=== PATIENT | female | born 1995 | race Caucasian/White ===

== ENCOUNTER 2017-10-14 12:10 | Emergency (ER) | payer OTHER ==
[2017-10-14 12:47] LABS: Bilirubin Small (Negative); Blood, Urine Negative (Negative); Glucose, Urine (Dipstick) Negative (Negative); Leukocyte Trace (Negative); Nitrite Negative (Negative); Protein, Urine (Dipstick) Negative (Neg-Trace); Specific Gravity, Urine 1.025 (1.005-1.030); Urobilinogen 0.2 mg/dL (0.2-1.0); pH, Urine 6.5 (5.0-9.0)
[2017-10-14 12:49] LABS: Clarity Clear (Clear); Pregnancy Test - Urine (BHCG) Negative (Negative); Pregu Control Background? CLEAR/WHITE (CLR/WHITE); Pregu Control Bar Appear? YES (CONTROL BAR); Specific Gravity 1.025 (1.002-1.036)
[2017-10-14 12:57] LABS: Bacteria/HPF 1+ HPF (None Seen); RBC/HPF 0-3 HPF (0-3)
[2017-10-14 12:58] LABS: Hyaline Casts/LPF 0-3 HYALINE CAST LPF (0-3 Hyaline)
[2017-10-14 12:58] LABS: #Basophils 0.1 thou/uL (0.0-0.2); #Eosinphils 0.1 thou/uL (0.0-0.7); #Lymphocytes 1.7 thou/uL (1.20-3.40); #Monocytes 0.4 thou/uL (0.11-0.59); %Basophils 1.2 % (0.0-1.0); %Eosinophils 1.8 % (0.0-10.0); %Lymphocytes 32.2 % (21.0-51.0); %Neutrophils 57.8 % (42.0-75.0); Hemoglobin 14.3 g/dL (12.0-16.0); Mean Corpuscular HGB CONC 33.2 g/dL (32.0-36.0); Mean Corpuscular Hemoglobin 33.1 pg (27.0-31.0); Mean Corpuscular Volume 99.7 fl (81.0-99.0); Mean Platelet Volume 7.4 fL (7.4-10.4); Platelet Count 242 thou/uL (130-400); RBC Distribution Width 10.9 % (11.5-14.5); Red Blood Cell (RBC) Count 4.32 mill/uL (4.20-5.40); White Blood Cell (WBC) Count 5.2 thou/uL (4.8-10.8)
[2017-10-14 13:21] LABS: ALT (SGPT) Less than 7 U/L (8-55); AST (SGOT) 12 U/L (5-34); Albumin 4.6 g/dL (3.5-5.0); Alkaline Phosphatase 41 U/L (40-150); Anion Gap 12 mmol/L (10-20); BUN (Urea Nitrogen) 8 mg/dL (7.0-18.7); Bilirubin, Total 0.7 mg/dL (0.2-1.2); Calc. Creatinine Clearance 0 mL/min (70-130); Calcium 9.5 mg/dL (7.8-10.44); Carbon Dioxide 25 mmol/L (22-29); Chloride 105 mmol/L (98-107); Estimated GFR-MDRD 86; Globulin 2.7 g/dL (2.4-3.5); Glucose 88 mg/dL (70-105); Lipase 14 U/L (8-78); Potassium 4.2 mmol/L (3.5-5.1); Protein, Total 7.3 g/dL (6.0-8.3); Sodium 138 mmol/L (136-145)
--- NOTE | 2017-10-14 14:01 | ULT ---
RIGHT UPPER QUADRANT ULTRASOUND: Date: 10/14/17 HISTORY: Right upper quadrant pain. TECHNIQUE: Multiple longitudinal and transverse images of the right upper quadrant of the abdomen obtained using multihertz curvilinear transducer. Real-time, color flow, and spectral waveform Doppler analysis use d to evaluate the right upper quadrant. FINDINGS: The liver is unremarkable. No evidence of hepatic parenchymal masses or lesions seen. Normal hepatope wilson flow is seen. The common bile duct is of normal size, measuring 2.3 mm. The gallbladder is unremarkable. The right kidney is unremarkable. [id number] measurement measuring 10.5 cm. No significant evidence of ascites is seen. The pancreas is suboptimally visualized to comm ent upon. The gallbladder demonstrates no evidence of gallstones or wall thickening. IMPRESSION: Normal right upper quadrant ultrasound. POS: [facility]
[2017-10-14] MEDS ORDERED: ISOVUE-370 76%-LOCM 1 ML ONE (14:37)
[2017-10-14] MEDS ORDERED: Ondansetron HCl/PF 4 MG/2 ML Vial ONE (18:45)
--- NOTE | 2017-10-14 18:53 | CT ---
ABDOMEN CT WITH CONTRAST PELVIC CT WITH CONTRAST: Date: 10/14/17 HISTORY: Abdominal pain. Pain exacerbated after eating. One episode of emesis. COMPARISON: None. TECHNIQUE: Abdomen and pelvic CT are performed with IV contrast. Enteric contrast was not administered. Coronal reformatted images are submitted for interpretation. FINDINGS: ABDOMEN CT: Lung bases are clear. Heart size is normal. No pericardial effusion. Descending thoracic aorta and ab dominal aorta have a normal caliber. No periaortic fat stranding. No gastrohepatic, retrocrural, or periportal lymphadenopathy. Intra and extrahepatic portal vein is patent. Liver, spleen, pancreas, and adrenal glands have appropriate enhancement. Gallbladder is mildly contracted. No obvious CT evidence of cholecystitis. There are a few scattered nonspecific mesenteric lymph nodes. No mesenteric mass, lymphadenopathy, fr ee air, or free fluid. Symmetric enhancement of the kidneys. Bilaterally, no obstructive uropathy. Limited evaluation of the alimentary canal due to lack of oral contrast. Grossly unremarkable gastric mucosa, duodenum, and multiple normal caliber small bowel loops. Normal ileocecal junction. Appendix is not appreciated. No inflammation at the cecal apex. Scattered fecal material in nondistended, non dilated colon. PELVIC CT: Uterus and adnexal structures are unremarkable. Urinary bladder is unremarkable. No pelvic mass, lymp hadenopathy, or free air. Free fluid in the pelvis is presumed to be physiologic. No lytic or blastic lesions in the osseous structures. IMPRESSION: 1. No acute abnormality in the abdomen or pelvis. 2. Nonvisualization of the appendix. No obvious inflammation at the cecal apex. POS: [facility]
[2017-10-14] MEDS ORDERED: Ketorolac Tromethamine 30 MG/ML VIAL ONE (19:27)
== END 2017-10-14 22:06 | disposition home or self-care (01) ==
LOC: ERS 12:10
DX: K82.8 Other specified diseases of gallbladder (principal); Z79.899 Other long term (current) drug therapy
CPT/HCPCS: 36415; 74177; 76705; 80053; 81003; 81015; 81025; 83690; 85025; 87086; 96361; 96374; 96375; J1885; J2405

== ENCOUNTER 2017-10-15 11:39 | Outpatient (CLI) | payer OTHER ==
--- NOTE | 2017-10-15 15:09 | NM ---
HEPATOBILIARY SCAN: Date: 10/15/17 COMPARISON: None. HISTORY: Right upper quadrant abdominal pain. TECHNIQUE: A hepatobiliary scan was performed after administration of 4.9 mCi technetium-99m mebrofenin. FINDINGS: Prompt uptake of the radiopharmaceutical by the liver is seen. Biliary activity and gallbladder activ ity is seen immediately. Bowel activity is seen within 15 minutes. Gallbladder ejection fraction estimated at 57% after administration of CCK. IMPRESSION: Normal hepatobiliary scan. POS: [facility]
== END 2017-10-15 11:40 | disposition home or self-care (01) ==
LOC: NM 11:39
PROVIDERS: ATTEND Surgery
DX: R10.11 Right upper quadrant pain (principal)
CPT/HCPCS: 78227; A9537

== ENCOUNTER 2017-10-16 10:02 | Observation (INO) | payer OTHER ==
[2017-10-16 10:52] LABS: #Basophils 0.1 thou/uL (0.0-0.2); #Eosinphils 0.1 thou/uL (0.0-0.7); #Lymphocytes 1.1 thou/uL (1.20-3.40); #Monocytes 0.4 thou/uL (0.11-0.59); #Neutrophils 2.9 thou/uL (1.40-6.50); %Basophils 1.3 % (0.0-1.0); %Eosinophils 1.2 % (0.0-10.0); %Lymphocytes 25.2 % (21.0-51.0); %Neutrophils 64.3 % (42.0-75.0); Mean Corpuscular HGB CONC 33.8 g/dL (32.0-36.0); Mean Corpuscular Hemoglobin 33.8 pg (27.0-31.0); Mean Platelet Volume 7.3 fL (7.4-10.4); Platelet Count 228 thou/uL (130-400); RBC Distribution Width 10.7 % (11.5-14.5); Red Blood Cell (RBC) Count 4.14 mill/uL (4.20-5.40); White Blood Cell (WBC) Count 4.5 thou/uL (4.8-10.8)
--- NOTE | 2017-10-16 10:54 | HP ---
DATE OF ADMISSION: 10/16/2017 CHIEF COMPLAINT: Right upper quadrant pain. HISTORY OF PRESENT ILLNESS: This is a 21-year-old female with a history of intractable right upper q uadrant pain for the last week. She was seen on Sunday in the [facility] where she donwing d ultrasound and CT scan which showed no obvious intra-abdominal inflammation. Ultrasound showed no gallstones or gallbladder wall thickening. Labs were all within normal limits. She did have a lot o f stool in the cecum and at the hepatic flexure of colon. Saw me in the office yesterday and due to the biliary characteristic of her symptoms, I ordered HIDA scan. HIDA scan was done yesterday aftern oon and showed a normal ejection fraction of 57% in the gallbladder was seen. She did have reproduct ion of her symptoms with the CCK injection. Because of the stool in her right colon, I had to do a b ottle of magnesium citrate last night. She did that and she had multiple bowel movements. She is no w complaining of persistent even more severe pain in the right upper quadrant, not associated with dy suria, no fever, no foul smelling urine. No blood in stool, no previous history of inflammatory chana l disease or Crohn's, no previous symptoms like this. PAST MEDICAL HISTORY: She denies. PAST SURGICAL HISTORY: Appendectomy. MEDICINES TAKEN DAILY: None. ALLERGIES: No known drug allergies. SOCIAL HISTORY: No smoking, alcohol or other drugs. 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 REVIEW OF SYSTEMS: Otherwise, negative unless described above. PHYSICAL EXAMINATION: HEENT: Sclerae are anicteric. Oropharynx clear. NECK: No lymphadenopathy. LUNGS: Clear. HEART: Regular rate and rhythm. ABDOMEN: Soft. She is tender in the right upper quadrant. She has localized guarding, without rebo und. No abdominal or inguinal hernias. EXTREMITIES: No ischemia or edema to extremities. LABORATORY DATA: Pending on this admission, but LFTs, lipase normal on 10/14/2017. Her UA showed tr guillermo leukocyte esterase, 4-6 WBCs and urine culture for 10/14/2017 shows no growth. ASSESSMENT: Right upper quadrant pain, severe uncertain etiology with no gallstones seen on ultrasou nd. No abdominal pathology seen on CT scan and HIDA scan with ejection fraction of 57%, but reproduc tion of symptoms. PLAN: Admit her to the hospital for IV fluids, nausea medicine and supportive care. We will give he r IV Protonix. We will write for GI to see her for upper endoscopy with a positive reproduction of h er symptoms with HIDA. She potentially could undergo laparoscopic cholecystectomy after GI sees and performs upper endoscopy.
[2017-10-16] MEDS ORDERED: Promethazine HCl 25 MG/ML VIAL IM PRN ×2 (11:11→16:42)
[2017-10-16] MEDS ORDERED: Morphine 5 MG/ML SYRINGE SLOW IVP PRN (11:12)
[2017-10-16] MEDS ORDERED: Sodium Chloride 0.9% 1,000 ML IV SCH (11:15)
[2017-10-16] MEDS ORDERED: Pantoprazole 40 MG VIAL IVP ONE (11:15)
--- NOTE | 2017-10-16 11:20 | RAD ---
UPRIGHT AND SUPINE FRONTAL IMAGING ABDOMEN AND PELVIS 10-16-17: History: Right upper quadrant pain. FINDINGS: Upright imaging demonstrates no evidence for free intraperitoneal air. The bowel gas pattern appears nonobstructed. IMPRESSION: Unremarkable two view examination of the abdomen. POS: [facility]
[2017-10-16 11:27] LABS: ALT (SGPT) 8 U/L (8-55); AST (SGOT) 16 U/L (5-34); Albumin 4.2 g/dL (3.5-5.0); Alkaline Phosphatase 39 U/L (40-150); Anion Gap 11 mmol/L (10-20); BUN (Urea Nitrogen) 12 mg/dL (7.0-18.7); Bilirubin, Total 0.5 mg/dL (0.2-1.2); Calc. Creatinine Clearance 0 mL/min (70-130); Calcium 9.1 mg/dL (7.8-10.44); Carbon Dioxide 27 mmol/L (22-29); Chloride 105 mmol/L (98-107); Estimated GFR-MDRD 86; Globulin 2.6 g/dL (2.4-3.5); Glucose 87 mg/dL (70-105); Lipase 12 U/L (8-78); Potassium 4.1 mmol/L (3.5-5.1); Protein, Total 6.8 g/dL (6.0-8.3); Sodium 139 mmol/L (136-145)
[2017-10-16] MEDS: Acetaminophen 1,000 MG in Premix Bag 1 BAG IVPB PRN (11:42)
[2017-10-16] MEDS: D5 1/2 NS w/20 mEq KCL 1,000 ML IV SCH ×2 (11:43→20:49)
[2017-10-16] MEDS: Morphine 5 MG/ML SYRINGE SLOW IVP PRN ×5 (11:43→22:07)
[2017-10-16 12:10] VITALS: BMI 23.6
[2017-10-16] MEDS: Ondansetron HCl/PF 4 MG/2 ML Vial IVP PRN ×2 (12:36→21:27)
--- NOTE | 2017-10-16 14:35 | CON ---
DATE OF CONSULTATION: 10/16/2017 REASON FOR CONSULTATION: Right upper quadrant abdominal pain. CONSULTING PHYSICIAN: Dr. Cali Snow. HISTORY OF PRESENT ILLNESS: The patient is a 21-year-old female with no past medical history, preshadley taveras with complaints of right upper quadrant abdominal pain. She states that she was in her usual st ate of health until approximately 3-4 days ago when she had the acute onset of right upper quadrant a bdominal pain characterized as cramping, 6/10 in severity, nonradiating, worse with ingestion of food and physical activity, but with no clear alleviating factors. She was ultimately [facility] where she had an ultrasound and CT scan, which did not show any obvious pathology. Routine labs obtained at that time were also normal; however, there was a fair amount of stool noted within t he colon on the CT exam, so she was given magnesium citrate for possible constipation; however, despi te having 3-4 large-volume bowel movements after administration of magnesium citrate it did not affec t her abdominal pain at all. HIDA scan done yesterday showed a normal ejection fraction of 57% withi n the gallbladder, but did also reproduce her symptoms with CCK injection. Currently, denies any claudio sea, vomiting, fevers, chills, hematemesis, melena, hematochezia, jaundice, encephalopathy, or dyspha karina. REVIEW OF SYSTEMS: A 10-category review of systems was obtained with all responses negative except f or the pertinent positives as listed in the HPI. PAST MEDICAL HISTORY: None. PAST SURGICAL HISTORY: Appendectomy. SOCIAL HISTORY: Drinks approximately 3 alcoholic beverages per month. Denies any smoking or illicit drug use. OUTPATIENT MEDICATIONS: None. ALLERGIES: No known drug allergies. PHYSICAL EXAMINATION: VITAL SIGNS: Temperature 98.1, pulse 56, respiratory rate 18, satting 99% on room air. GENERAL: The patient is lying in bed comfortably in no acute distress. Alert and oriented x4. NECK: Supple. No JVD noted. CARDIOVASCULAR: Regular rate and rhythm with no discernible murmurs, gallops, or rubs. RESPIRATORY: Clear to auscultation bilaterally with no discernible wheezes or rales. ABDOMEN: Hypoactive bowel sounds, soft, nondistended. Tenderness to palpation in the midepigastric/ periumbilical and right upper quadrant. No rebound or guarding noted. EXTREMITIES: No cyanosis, clubbing, or edema. LABORATORY DATA: CBC with a white blood cell count of 4.5, hemoglobin 14, hematocrit 41.4, platelets 228. Chemistry with a sodium of 139, potassium 4.1, chloride 105, CO2 of 27, BUN 12, creatinine 0.8 3, glucose 83, AST 16, ALT 8, alkaline phosphatase 39, total bilirubin 0.5, and lipase 12. IMAGING STUDIES: Abdominal x-ray obtained on 10/16/2017 was unremarkable with no evidence of intrape ritoneal air and a nonspecific bowel gas pattern. Previous HIDA scan obtained showed a normal ejecti on fraction, but reproduced pain with administration of CCK. ASSESSMENT AND PLAN: The patient is a 21-year-old female with no significant past medical history pr esenting with acute onset of right upper quadrant abdominal pain. 1. Right upper quadrant abdominal pain. The patient presenting with acute onset of severe right upp er quadrant abdominal pain that is exacerbated with food and physical activity with no clear alleviat ing factors. Routine labs and imaging obtained up until this point have been negative thus far for a n obvious pathology. However, administration of CCK during her HIDA exam does indicate a possible bi liary origin. Upon questioning her, the pattern of her pain follows a crescendo/decrescendo pattern, also more indicative of biliary-type pain. Differential could include peptic ulcer disease, gastrit is, duodenitis, inflammatory bowel disease/Crohn's disease, endometriosis (less likely) and/or possib le malignancy (much less likely). RECOMMENDATIONS: 1. We will continue the patient n.p.o. for now. 2. We will plan for EGD later today for intraluminal evaluation of the upper gastrointestinal tract. 3. Pain control per primary team.
[2017-10-16] MEDS ORDERED: Lidocaine 1% PF 5 ML VIAL ONE (15:02)
[2017-10-16] MEDS ORDERED: PROPOFOL 200 MG/20 ML VIAL ONE (15:02)
[2017-10-16 15:37] LABS: Bilirubin Negative (Negative); Blood, Urine Negative (Negative); Clarity CLEAR (Clear); Glucose, Urine (Dipstick) Negative (Negative); Leukocyte Small (Negative); Nitrite Negative (Negative); Protein, Urine (Dipstick) Negative (Neg-Trace); Specific Gravity, Urine 1.009 (1.002-1.036); Urobilinogen 0.2 mg/dL (0.2-1.0); pH, Urine 7.5 (5.0-9.0)
[2017-10-16 15:39] LABS: Bacteria/HPF None Seen HPF (None Seen); Hyaline Casts/LPF 0-3 HYALINE CAST LPF (0-3 Hyaline); RBC/HPF 0-3 HPF (0-3); Squamous Epithelial None Seen HPF (0-3); WBC/HPF None Seen HPF (0-3)
[2017-10-16 15:40] LABS: Pregnancy Test - Urine (BHCG) Negative (Negative); Pregu Control Background? CLEAR/WHITE (CLR/WHITE); Pregu Control Bar Appear? YES (CONTROL BAR); Specific Gravity 1.009 (1.002-1.036)
[2017-10-16] MEDS ORDERED: Midazolam HCl 2 mg/2 ml Vial ONE (16:19)
[2017-10-16] MEDS ORDERED: Promethazine HCl 25 MG/ML VIAL SLOW IVP PRN (16:42)
[2017-10-16] MEDS ORDERED: Ondansetron HCl/PF 4 MG/2 ML Vial IVP PRN (16:42)
[2017-10-16] MEDS ORDERED: Fentanyl 100 MCG/2 ML VIAL ONE (16:53)
--- NOTE | 2017-10-16 20:34 | OP ---
DATE OF PROCEDURE: 10/16/2017 PROCEDURE: Esophagogastroduodenoscopy (diagnostic). INDICATION FOR PROCEDURE: Right upper quadrant abdominal pain. DESCRIPTION OF PROCEDURE: After the risks, and benefits were explained to the patient including risk s of bleeding, infection, perforation, reactions to anesthesia and/or pain, informed consent was obta ined. The patient was then taken to the endoscopy suite where deep sedation was administered via pro pofol and anesthesia support. The standard gastroscope was then introduced into the mouth with intub ation of the esophagus, stomach and proximal small bowel with the findings listed below. The patient tolerated the procedure well with no immediate perioperative complications noted. FINDINGS: Esophagus: Normal appearing mucosa was seen in the proximal, mid and distal esophagus. There was no evidence of erosions, ulcerations, or mass lesions. Both the diaphragmatic pinch and GE junction we re well seen at approximately 43 cm past the incisors. Stomach: Normal appearing mucosa was seen in the cardia, fundus, body, antrum and incisura. There w as no evidence of erosions, ulcerations, or mass lesions. Duodenum: Normal appearing mucosa was seen in both the duodenal bulb and second portion of the duode num. There was no evidence of erosions, ulcerations, or mass lesions. The ampulla was also visualiz ed during this examination with no apparent abnormalities. IMPRESSION: Normal upper endoscopy. RECOMMENDATIONS: 1. Follow with the primary inpatient surgical team. 2. Pain control per primary team. 3. We would consider surgical cholecystectomy.
[2017-10-17] MEDS: Morphine 5 MG/ML SYRINGE SLOW IVP PRN ×4 (00:15→08:23)
[2017-10-17] MEDS: Ondansetron HCl/PF 4 MG/2 ML Vial IVP PRN (01:25)
[2017-10-17] MEDS: D5 1/2 NS w/20 mEq KCL 1,000 ML IV SCH ×3 (04:03→20:34)
[2017-10-17] MEDS: Acetaminophen 1,000 MG in Premix Bag 1 BAG IVPB PRN (04:54)
[2017-10-17] MEDS ORDERED: Pantoprazole 40 MG VIAL IVP SCH (09:00)
[2017-10-17] MEDS ORDERED: CEFAZOLIN/Water 2 GM/20 ML SYRINGE ONE (11:02)
[2017-10-17] MEDS ORDERED: Bupivacaine 0.25% HCL 30 ML VIAL ONE (11:05)
[2017-10-17] MEDS ORDERED: Lidocaine 1% w/Epinephrine 1:200K 30 ML VIAL ONE (11:05)
[2017-10-17] MEDS ORDERED: Fentanyl 100 MCG/2 ML VIAL ONE ×3 (11:12→12:29)
[2017-10-17] MEDS ORDERED: Ondansetron HCl/PF 4 MG/2 ML Vial ONE ×3 (11:12→15:01)
[2017-10-17] MEDS ORDERED: HYDROmorphone 2 MG/ML VIAL SLOW IVP PRN (12:05)
[2017-10-17] MEDS ORDERED: Meperidine HCl/PF 25 MG/ML VIAL SLOW IVP PRN (12:05)
[2017-10-17] MEDS ORDERED: Ondansetron HCl/PF 4 MG/2 ML Vial IVP PRN ×2 (12:05→13:16)
[2017-10-17] MEDS ORDERED: Promethazine HCl 25 MG/ML VIAL SLOW IVP PRN (12:05)
--- NOTE | 2017-10-17 12:16 | OP ---
DATE OF PROCEDURE: 10/17/2017 PREOPERATIVE DIAGNOSIS: Chronic biliary dyskinesia. POSTOPERATIVE DIAGNOSIS: Chronic biliary dyskinesia. PROCEDURE: Laparoscopic cholecystectomy. SURGEON: Cali Snow M.D. ANESTHESIA: General. ESTIMATED BLOOD LOSS: Minimal. COMPLICATIONS: None. SPECIMEN: Gallbladder. FINDINGS: Chronic cholecystitis. PROCEDURE IN DETAIL: The patient was taken to the Operating Room and laid supine on the Operating Orin m table. After general anesthetic was obtained, the abdomen was prepped and draped in a sterile fashi on. A curved incision was made below the umbilicus. Cautery was used to dissect down to the umbilical fascia. Umbilical fascia was incised and held up using a Ty. The abdominal cavity was entered us ing a Katherine clamp. Holding stitch of Vicryl was placed on each side of the fascia. Coughlin trocar was placed. High-flow pneumoperitoneum was obtained. An upper midline 5-mm port and two right upper quadr ant 5-mm ports were placed under direct camera visualization. The gallbladder was retracted from the gallbladder fossa. The peritoneum of the gallbladder was opened anteriorly and posteriorly. The criti sung view triangle was seen showing only the cystic duct and cystic artery branching from medial to la teral. There were no other branching structures. Two clips were placed proximally on the cystic duct and one laterally. It was cut using laparoscopic scissors. The cystic artery was taken in the same wa y. Electrocautery was then used to dissect the gallbladder out of the gallbladder fossa. The gallblad stanislav was placed in an Endo catch bag and brought out through the Coughlin. There was no bleeding or bile in the liver bed. The cystic duct stump and cystic artery stump were intact without evidence of extr avasation or bleeding. All port sites were infiltrated using local anesthesia. All ports were removed under camera visualization. Pneumoperitoneum was let down. The Vicryl was used to close the fascial defect below the umbilicus. All incisions were irrigated and closed using 4-0 Monocryl and DermaBond. The patient was en route to Recovery in stable condition. All instrument counts, needle counts and l ap counts were correct.
[2017-10-17] MEDS ORDERED: hydrALAZINE 20 MG/ML VIAL SLOW IVP PRN (13:16)
[2017-10-17] MEDS ORDERED: Dextrose 50% Abboject 50 ML SYRINGE SLOW IVP PRN (13:16)
[2017-10-17] MEDS ORDERED: HYDROcodone/Acetaminophen 10/325 mg Tablet PO PRN (13:16)
[2017-10-17] MEDS ORDERED: Calcium Carbonate 500 MG ChewTAB PO PRN (13:16)
[2017-10-17] MEDS ORDERED: Dextrose 5% in Water 1,000 ML IV PRN (13:16)
[2017-10-17] MEDS ORDERED: Ketorolac Tromethamine 30 MG/ML VIAL IVP PRN (13:16)
[2017-10-17] MEDS ORDERED: Mag-Al 1200 mg/1200 mg/30 ML UDCUP PO PRN (13:16)
[2017-10-17] MEDS ORDERED: Promethazine HCl 25 MG/ML VIAL IM PRN (13:16)
[2017-10-17] MEDS ORDERED: Morphine 5 MG/ML SYRINGE SLOW IVP PRN (13:43)
[2017-10-17] MEDS: HYDROcodone/Acetaminophen 10/325 mg Tablet PO PRN ×2 (14:48→20:26)
[2017-10-17] MEDS ORDERED: Polyethylene Glycol 3350 17 GM Packet PO SCH (15:00)
[2017-10-17] MEDS ORDERED: Lidocaine 1% PF 5 ML VIAL ONE (15:01)
[2017-10-17] MEDS ORDERED: Ketorolac Tromethamine 30 MG/ML VIAL ONE (15:01)
[2017-10-17] MEDS ORDERED: Glycopyrrolate 0.2 MG/ML 5 ML SYRINGE ONE (15:01)
[2017-10-17] MEDS ORDERED: PROPOFOL 200 MG/20 ML VIAL ONE (15:01)
[2017-10-17] MEDS ORDERED: Dexamethasone 20 MG/5 ML VIAL ONE (15:01)
[2017-10-17] MEDS: Famotidine/PF 20 mg/2ml Vial SLOW IVP SCH (20:24)
[2017-10-17] MEDS: Famotidine 20 MG TAB PO SCH (20:24)
[2017-10-18] MEDS: HYDROcodone/Acetaminophen 10/325 mg Tablet PO PRN (05:51)
[2017-10-18 08:56] VITALS: BP 107/64; TEMP 97.9
[2017-10-18] MEDS: Famotidine 20 MG TAB PO SCH (09:07)
[2017-10-18] MEDS: Famotidine/PF 20 mg/2ml Vial SLOW IVP SCH (09:11)
[2017-10-18] MEDS: D5 1/2 NS w/20 mEq KCL 1,000 ML IV SCH (09:12)
--- NOTE | 2017-10-19 13:59 | DIS ---
DATE OF ADMISSION: 10/16/2017 DATE OF DISCHARGE: 10/18/2017 ADMITTING DIAGNOSIS: Right upper quadrant pain, severe. DISCHARGE DIAGNOSIS: Chronic acalculous cholecystitis. CONDITION AT DISCHARGE: Improved. STAFF: Cali Snow M.D. PROCEDURES DURING HOSPITALIZATION: EGD by Dr. Dunne without complication, laparoscopic cholecystec garcia by Dr. Snow without complication. HOSPITAL COURSE: The patient was admitted with severe right upper quadrant pain. She already had no rmal CT and normal ultrasound. She had normal HIDA scan. She underwent upper endoscopy by Dr. Pete mariee, within normal limits. I then performed laparoscopic cholecystectomy. Postop course uneventful. Discharged home on postoperative day #1, doing better. She will follow up with me in the office in 2 weeks.
== END 2017-10-18 11:26 | disposition home or self-care (01) ==
LOC: SURG A 10:02
PROVIDERS: ADMIT Surgery; ATTEND Surgery
PROC: 0DJ08ZZ Inspection of Upper Intestinal Tract, Via Natural or Artificial Opening Endoscopic (ICD-10-PCS; principal; 2017-10-16)
PROC: 0FT44ZZ Resection of Gallbladder, Percutaneous Endoscopic Approach (ICD-10-PCS; 2017-10-17)
DX: K81.1 Chronic cholecystitis (principal); K82.8 Other specified diseases of gallbladder; Z90.49 Acquired absence of other specified parts of digestive tract
CPT/HCPCS: 36415; 74019; 78227; 80053; 81001; 81025; 83690; 85025; 87086; 88304; 96361; 96365; 96372; 96375; 96376; J2270; A9537; C9113; G0378; J0131; J1100; J1885; J2001; J2250; J2405; J2550; J2704; J3010; S0020